=== PATIENT | male | born 1995 | race African-American/Black ===

== ENCOUNTER 2016-08-13 14:39 | Emergency (ER) | payer SELFPAY ==
[~2016-08-13] VITALS: Ht 190.5 cm; Wt 100.0 kg
[~2016-08-13 14:39] MED LIST: AMOX500T PO; CIPR0.3S RIGHT EAR; Z.0.NO CURRENT MEDS
[2016-08-13 14:41] VITALS: BP 143/79; PULSE 72; RESP 12; TEMP 97.5; O2SAT 99
--- NOTE | 2016-08-13 15:22 | PD ---
HPI Chief Complaint: Lump, Cyst, Hernia Time Seen by Provider: 15:19 Travel History International Travel<30 days: No Contact w/Intl Traveler<30days: No Traveled to known affect area: No History of Present Illness HPI 21-year-old male presents to the emergency Department with complaint of a lump to his right groin area 2 days. He says he gets this to his groin area occasionally and they come and go. He said this one is a little bit bigger than normal and more tender. He has tried popping it but it is hard. Denies fever, chills, nausea, vomiting. Denies penile discharge, pain, lesions. Denies testicular pain, swelling. Has not taken any medications or tried any other treatments to the bases symptoms. No known aggravating or relieving factors. Denies allergies. Denies significant past medical history. No other modifying factors or associated signs and symptoms. PFSH Past Medical History Medical History: Denies Significant Hx Immunizations Current: Yes Past Surgical History Surgical History: No Previous Surgery Social History Alcohol Use: No Tobacco Use: No Allergies-Medications (Allergen,Severity, Reaction): Coded Allergies: No Known Allergies (Verified , 08/13/16) Reported Meds & Prescriptions Reported Meds & Active Scripts Active Ibuprofen 800 Mg Tab 800 Mg PO Q6HR PRN Keflex (Cephalexin) 500 Mg Cap 500 Mg PO Q6H 10 Days Bactrim DS (Sulfamethoxazole-Trimethoprim) 800-160 Mg Tab 1 Tab PO BID 10 Days Review of Systems Except as stated in HPI: all other systems reviewed are Neg Physical Exam Narrative GENERAL: Well-nourished, well-developed patient, in no acute distress; afebrile , nontoxic-appearing SKIN: There is an indurated area to the right groin which measures about 1.5 cm in diameter. It is fluctuant but there is no pointing or drainage. There is a zone of inflammation around it but no lymphangitis. No groin lymphadenopathy. HEAD: Atraumatic. Normocephalic. EYES: Pupils equal and round. No scleral icterus. No injection or drainage. ENT: Mucosa pink and moist. Airway patent. NECK: Trachea midline. CARDIOVASCULAR: Regular rate. RESPIRATORY: No accessory muscle use. GASTROINTESTINAL: Flat. MUSCULOSKELETAL: No obvious deformities. No clubbing. No cyanosis. No edema. NEUROLOGICAL: Awake and alert. Oriented 3. No obvious cranial nerve deficits. Motor grossly within normal limits. Normal speech. PSYCHIATRIC: Appropriate mood and affect; insight and judgment normal. Data Data Last Documented VS Vital Signs Date Time Temp Pulse Resp B/P Pulse Ox O2 Delivery O2 Flow Rate FiO2 08/13/16 14:41 97.5 72 12 143/79 99 Room Air Orders Wound Culture And Gram Stain (08/13/16 15:27) MDM Medical Decision Making Medical Screen Exam Complete: Yes Emergency Medical Condition: Yes Medical Record Reviewed: Yes Differential Diagnosis Abscess, cellulitis, folliculitis Narrative Course 21-year-old male with an abscess to his right groin area. See my procedure note for incision and drainage. Wound culture pending. Keflex, Bactrim, ibuprofen prescribed for home. Patient is medically cleared and stable for discharge. Discussed reasons to return to the emergency department. Instructed patient to follow up with primary care provider. Patient agrees with treatment plan. The patients vital signs are stable and the patient is stable for outpatient follow-up and treatment. Patient discharged home, stable and in no acute distress. Procedures Procedure Narrative INCISION AND DRAINAGE OF ABSCESS: The area was prepped and was sterilely draped. Ethyl chloride was used to anesthetize the area. The area was properly anesthetized. A number 11 scalpel was used to make a 0.5-cm incision across the area of the abscess. Cultures were obtained. The abscess was drained an irrigated with normal saline. Sterile dressing applied. Diagnosis Primary Impression: Abscess of right groin Referrals: Primary Care Physician Patient Instructions: Abscess (ED), Abscess Follow-up (ED), Abscess Incision and Drainage (ED), General Instructions Departure Forms: Tests/Procedures, Work Release Enter return to work date: Aug 14, 2016 Additional Instructions: Complete full course of antibiotics Warm compresses to the affected area Keep area clean and dry Ibuprofen or Tylenol as directed as needed for pain and inflammation Follow-up with primary care provider Return to emergency department immediately with worsening of symptoms Med/Other Pt SpecificInfo: Prescription(s) given Scripts Ibuprofen 800 Mg [id number] Mg PO Q6HR PRN (PAIN) #30 TAB Ref 0 Prov:Daniella Ramirez [employer] 08/13/16 Cephalexin (Keflex)500 Mg [id number] Mg PO Q6H 10 Days Ref 0 Prov:Daniella Ramirez [employer] 08/13/16 Sulfamethoxazole-Trimethoprim (Bactrim DS)800-160 Mg Tab1 Tab PO BID 10 Days Ref 0 Prov:Daniella Ramirez 08/13/16 Disposition: 01 DISCHARGE HOME Condition: Stable Daniella Ramirez Aug 13, 2016 15:22
[2016-08-13] MEDS ORDERED: CEPH-460 PO (15:27)
[2016-08-13] MEDS ORDERED: BACT800T5 PO (15:27)
[2016-08-13] MEDS ORDERED: IBUP800T23 PO (15:27)
== END 2016-08-13 15:56 | disposition home or self-care (01) ==
LOC: NEPB 14:39
DX: L02.214 Cutaneous abscess of groin (principal)
CPT/HCPCS: 10060; 87070; 87205